=== PATIENT | male | born 1940 | race Caucasian/White ===

== ENCOUNTER 2022-11-24 01:47 | Day surgery (SDC) | payer MEDICARE, OTHER, SELFPAY ==
[2022-11-14 12:26] VITALS: BMI 25.8
--- NOTE | 2022-11-14 13:02 | PC.NURSE ---
Report to the Outpatient Waiting Room, entrance under the green pavilion located off [facility], at time _7:30AM on date __11/24/22 . Planned Procedure Time: _9:30AM . Time changes happen often and if your time is changed the preop area will call you the afternoon before. - You and your visitor will be asked to self-screen and do not enter if you have any COVID symptoms. - A mask is optional within the hospital at this time. Patients may have clear liquids (water, carbonated beverages, clear teas, apple juice) until 3 hours prior to surgery with a maximum of 20 ounces. - No food from midnight until time of surgery Take the following medications with a SIP of water the morning of surgery: ___METOPROLOL DO NOT STOP ANY OF YOUR OTHER PRESCRIPTION MEDICATIONS PRIOR TO SURGERY ?EXCEPT THE FOLLOWING Medications to discontinue per physician HOLD WARFARIN PER DR BHANDARI- PATIENT IS CALLING OFFICE TODAY FOR INSTRUCTIONS Date to take last dose Please no make-up, nail greek, hairspray, perfume, deodorant, or body powder the day of surgery. No jewelry (including any body piercings) or valuables the day of surgery, leave them at home. Please take a shower or bath the night before, or the morning of, surgery with an antibacterial soap. Wear comfortable, loose fitting clothing. Children are encouraged to wear pajamas. - Jewelry must be removed prior to entering the operating room. Rings and piercings that are not removed may be cut off. - The hospital will not accept responsibility for valuables. - Please leave all valuables, including medications, at home the day of surgery. If you are going home after surgery, a licensed stage driver must drive you home. - NO public transportation without another adult if you receive anesthesia. - We recommend that an adult stay with you for 24 hours following discharge. - We also recommend that you do not drive, make important decision, drink alcoholic beverages, or take any drugs that were not prescribed by your health care provider for at least 24 hours after your discharge time. Follow any additional instructions given to you from your surgeon. If you or anyone in your household have experienced Covid symptoms in the past week, please notify your surgeon or the nurse liaison at the phone number below for possible testing. Telephone instructions given to __PATIENT and asked if any additional questions and then verbalized understanding. Patient advised to call surgeon office or pre surgery nurse liaison [phone] if any additional questions.
[2022-11-24] VITALS (8 sets, daily range): BP systolic 150–188; BP diastolic 62–87; PULSE 56–72; RESP 12–18; TEMP 36–36.2; O2SAT 91–100
--- NOTE | 2022-11-24 07:25 | PM.IMHP ---
H&P: HPI History of Present Illness Date/Time: 11/24/22 07:25 Chief Complaint: chronic sinusitis Narrative: chronic sinusitis Review of Systems Review of Systems: All systems reviewed & are unremarkable except as noted in HPI and below PMFSH Social History Social History Smoking status: Never smoker Substance use: never Living arrangements: with family Spiritual care concerns: No Meds Home Medications and Allergies Home Medications Medication Instructions Recorded Confirmed Type fenofibrate 160 mg tablet 160 mg PO DAILY 11/14/22 11/24/22 History fluticasone propionate 50 1 spray intranasal DAILY PRN 11/14/22 11/24/22 History mcg/actuation nasal Congestion spray,suspension losartan 100 1 tablet PO QAM 11/14/22 11/24/22 History mg-hydrochlorothiazide 25 mg tablet metoprolol succinate 50 mg 50 mg PO QAM 11/14/22 11/24/22 History tablet,extended release 24 hr sildenafil 100 mg tablet 100 mg PO DAILY PRN Erectile 11/14/22 11/24/22 History Dysfunction trazodone 100 mg tablet 100 mg PO HS 11/14/22 11/24/22 History warfarin 7.5 mg tablet 3.25 mg PO DAILY 11/14/22 11/24/22 History Allergies Allergy/AdvReac Type Severity Reaction Status Date / Time No Known Allergies Allergy Verified 11/24/22 07:40 Exam Narrative: bilateral nasal polyposis and pansinusitis, rest of exam unremarkable Assessment and Plan Assessment and plan (1) Chronic sinusitis: Code(s): J32.9 - Chronic sinusitis, unspecified Status: Acute Plan Abrahan has pansinus disease, nasal polyps, deviated septum, here for septoplasty and endoscopic sinus surgery. Failed maximal medical management. r/b/a reviewed, pt agrees to proceed, refer to outpt H&p for full details.
[2022-11-24] MEDS: ACETAMINOPHEN 500 MG TABLET 1000 MG PO (07:59)
[2022-11-24] MEDS: LACTATED RINGERS 1,000 ML 30 ML IV CONT ×2 (08:00→11:35)
--- NOTE | 2022-11-24 08:46 | P.PNAN_ITS ---
Anes - Initial Pre Proc Eval Procedure: Operation Date: 11/24/22 09:30 Proposed Procedures p Septoplasty - Raymundo Hillman MD s Image Guided Fusion Bilateral Frontal Sinusotomy, Bilateral Total Ethmoidectomy, Bilateral Sphenoidectomy, Bilateral Maxillary Antrostomy, Bilateral Turbinate Reduction - Raymundo Hillman MD Date/Time: 11/24/22 08:46 Surgeon: Raymundo Hillman MD Pre Op Diagnosis: nasal polyps, deviated septum Patient Data Age: 81 Gender: M Height: 1.8 m Weight: 85.7 kg Last Vital Signs Temp 36.0 C L 11/24/22 07:36 Pulse 56 L 11/24/22 07:36 Resp 18 11/24/22 07:36 BP 150/75 H 11/24/22 07:36 Pulse Ox 99 11/24/22 07:36 O2 Del Method Room Air 11/24/22 07:36 Allergies Allergy/AdvReac Type Severity Reaction Status Date / Time No Known Allergies Allergy Verified 11/24/22 07:40 Home Medications Medication Instructions Recorded Confirmed Type fenofibrate 160 mg tablet 160 mg PO DAILY 11/14/22 11/24/22 History fluticasone propionate 50 1 spray intranasal DAILY PRN 11/14/22 11/24/22 History mcg/actuation nasal Congestion spray,suspension losartan 100 1 tablet PO QAM 11/14/22 11/24/22 History mg-hydrochlorothiazide 25 mg tablet metoprolol succinate 50 mg 50 mg PO QAM 11/14/22 11/24/22 History tablet,extended release 24 hr sildenafil 100 mg tablet 100 mg PO DAILY PRN Erectile 11/14/22 11/24/22 History Dysfunction trazodone 100 mg tablet 100 mg PO HS 11/14/22 11/24/22 History warfarin 7.5 mg tablet 3.25 mg PO DAILY 11/14/22 11/24/22 History Laboratory Tests 11/24/22 07:52 PT Pending INR Pending APTT Pending Patient hx anesthesia problems: none Family hx anesthesia problems: none Results Review: All pre-operative results and documents have been reviewed as part of the pre- operative evaluation. [facility] Social History Social History Smoking status: Never smoker Substance use: never Living arrangements: with family Spiritual care concerns: No Anes - Eval Final PreProcedure Day of Procedure 11/24/22 08:46 Patient weight: overweight Heart: regular rate and rhythm Lungs: clear to auscultation Airway: Mallampati scale class II Neurological: alert and oriented Last oral intake: >/= 8 hours ASA classification: III Emergent: no Anesthetic plan: proceed Anesthesia type and monitoring: general ETT and standard monitoring Results Review: All pre-operative results and documents have been reviewed as part of the pre-operative evaluation. Informed Consent: The patient's anesthetic plan and its attendant risks and benefits were discussed with the patient/family/POA. Questions were solicited and answers provided to the satisfaction of the patient/family/POA.
[2022-11-24 08:50] LABS: INR 1.3; Prothrombin Time 15.4 Seconds (11.1-14.7)
[2022-11-24 08:51] LABS: Partial Thromboplastin Time 25.1 SECONDS (22.3-36.8)
--- NOTE | 2022-11-24 09:29 | WPDHPUPDATE1 ---
History and Physical Update Update Date/Time: 11/24/22 09:29 History and Physical has been reviewed, including an updated exam of the patient. There are NO changes in the patient's condition. Risks, benefits, and alternatives have been discussed and questions answered. Patient agrees to proceed with procedure.
--- NOTE | 2022-11-24 09:30 | W.PM.PROC2 ---
Procedure Note - Detailed Date of Procedure 11/24/22 Pre-op Diagnosis nasal polyps, deviated septum Post-op Diagnosis Same Procedure Performed Bilateral frontal sinusotomy, total ethmoidectomy, maxillary antrostomy, sphenoidotomy, septoplasty and bilateral inferior turbinoplasty, image guided surgery Surgeon Raymundo Hillman MD Anesthesia General Indications Nasal polyps, crhonic sinusitis, deviated septum Findings Broad right septal deviation, bilateral meatal polypoisis Description of Procedure On the date of procedure the patient was met in the preoperative area and risk and benefits of the procedure reviewed with the patient as documented in the H&P and they elected to proceed with surgery. Patient was brought back to the operating room by the anesthesia team and underwent general endotracheal anesthesia. Once an adequate plane of anesthesia was obtained a timeout was performed to assure the patient identification the patient here to be performed were correct. They were.The patient was then prepped and draped in the normal fashion for endoscopic sinus surgery. The diffusion image guidance system was calibrated and used for the entire case. Afrin-soaked pledgets were placed in the nasal cavities bilaterally. The entire case was performed under endoscopic visualization. The right side was narrowed due to septal deviation.? Thus, septoplasty was required.? A left hemitransfixion incision was made in the left caudal septum and a mucoperichondrial flap was elevated in the usual fashion. The flap was elevated under endoscopic visualization and the remainder of the case was performed with endoscopic assistance. Using a D-knife, an incision was made through the cartilaginous septum with care to preserve the appropriate caudal and dorsal ?L-strut? of cartilage. The cartilage was then disarticulated from the bony-cartilaginous junction and the deviated cartilage was removed. Further deviated bone and cartilage was removed from the maxillary crest and posterior bony septum with care to avoid injury to the mucoperichondrial flap using a combination of dissection and Heath-Matthew forceps. Once this was completed, the hemitransfixion incision was closed using simple interrupted 4-0 chromic suture. Next, 1% lidocaine with 1:100,000 epinephrine was then injected into the root of the middle turbinate and lateral nasal wall. Attention was first directed towards the left side. The middle turbinate was medialized and the osteomeatal complex was identified with a yary probe. Using a 90 degree backbiter, the uncinate process was reflected anteriorly and removed using a combination of sharp and powered dissection. The maxillary antrostomy was then created and widened by identifying the natural ostia and opening the sinus with straight lan-cut forceps, backbiter, and microdebrider. Polyp tissue encountered was removed with microdebrider. Continuing with the microdebrider, the anterior ethmoid bulla was opened. Careful dissection was carried out posteriorly, through the basal lamella and posterior ethmoid cells until the sphenoid rostrum was identified. A Yash suction bluntly identified the sphenoid os and the opening was widened with microdebrider and mushroom punch to 5mm. Using an image guided curved suction as well as J-curette, the posterior most ethmoid cell was identified and the ethmoids were bluntly fractured and dissected from posterior to anterior along the base of the skull. The remaining bone fragments were removed with appropriate curved instruments and microdebrider.? Lastly, image guided frontal suction and sinus seeker were used to identify the frontal sinus and enter it.? Next, the right maxillary antrostomy, ethmoidectomy and sphenoidotomy were carried out in identical fashion with findings of gross polyp disease throughout. Next, the right frontal sinus was identified and entered using image guided suction, seeker and frontal sinus angled biting instruments.? No c
[2022-11-24] MEDS: OXYMETAZOLINE HCL 0.05% NAS 15 ML BTL (*BKC) 1 SPRAY NASAL (09:48)
[2022-11-24] MEDS: ceFAZolin 2 GM/D5W 50 ML 2 GM/50 ML BAG IVPB (09:50)
[2022-11-24] MEDS: LIDO 1%/EPINEPHRINE 1:100,000 50 ML VIAL 20 ML INFILTRATE (11:20)
[2022-11-24] MEDS: MUPIROCIN 2% OINT 22 GM TUBE 1 APPLIC EACH NARE (11:21)
[2022-11-24] MEDS: fentaNYL CITRATE INJ (*CRX) 100 MCG/2 ML VIAL 25 MCG IV PUSH (12:01)
[2022-11-24] MEDS: oxyCODONE HCL (*CRX) 5 MG TAB IR PO (12:54)
== END 2022-11-24 13:30 | disposition home or self-care (01) ==
PROVIDERS: Anesthesiology; Visit Provider Otolaryngology
PROC: (CPT 30520; principal; 2022-11-24 09:30)
PROC: (CPT 31253; 2022-11-24 09:30)
DX: J32.9 Chronic sinusitis, unspecified (principal); J33.9 Nasal polyp, unspecified; J34.2 Deviated nasal septum; Z79.01 Long term (current) use of anticoagulants
CPT/HCPCS: 31253; 31256; 31287; 61782; 30140; 30520; 36415; 85610; 85730; A9270; J0330; J0690; J1100; J1170; J2250; J2405; J2704; J3010; J7040; J7120